=== PATIENT | female | born 1940 | race Caucasian/White ===

== ENCOUNTER 2022-01-12 09:07 | Inpatient (IN) | payer MEDICARE ==
[~2022-01-12] VITALS: Ht 167.6 cm; Wt 126.1 kg
[2022-01-12 09:42] LABS: BASOPHILS % 0.2 % (0.0-1.0); EOSINOPHILS % 0.4 % (0.0-6.0); HEMATOCRIT 37.1 % (34.2-44.1); LYMPHOCYTES # (AUTO) 0.7 (1.0-3.2); LYMPHOCYTES % 12.2 % (18.0-39.1); MEAN CORPUSCULAR HEMOGLOBIN 25.3 pg (28-32); MEAN CORPUSCULAR HGB CONC 29.6 g/dL (31-35); MEAN CORPUSCULAR VOLUME 85.3 fL (81-99); MONOCYTES # (AUTO) 0.6 (0.2-0.8); MONOCYTES % 11.2 % (4.4-11.3); NEUTROPHILS # (AUTO) 4.2 (2.1-6.9); NEUTROPHILS % 75.5 % (38.7-80.0); PLATELET COUNT 172 x10e3/uL (140-360); RED BLOOD COUNT 4.35 x10e6/uL (3.6-5.1)
[2022-01-12 10:00] LABS: COLOR,URINE YELLOW (YELLOW)
[2022-01-12 10:01] LABS: CLARITY,URINE CLEAR (CLEAR); KETONES,URINE NEGATIVE (NEGATIVE); LEUKOCYTE ESTERASE ,URINE NEGATIVE (NEGATIVE); NITRITE,URINE NEGATIVE (NEGATIVE); PROTEIN,URINE DIPSTICK NEGATIVE (NEGATIVE); URINE UROBILINOGEN 0.2 mg/dL (0.2 - 1)
[2022-01-12] MEDS ORDERED: FISH OIL 1,0001 EAC2 PO (10:04)
[2022-01-12] MEDS ORDERED: JANTOVEN2.5 MG PO (10:04)
[2022-01-12] MEDS ORDERED: FUROSEMIDE40 MG PO (10:04)
[2022-01-12] MEDS ORDERED: RYTHMOL SR225 MG PO (10:04)
[2022-01-12] MEDS ORDERED: VITAMIN B-650 MG PO (10:04)
[2022-01-12] MEDS ORDERED: HYDRALAZINE HC100 MG PO (10:04)
[2022-01-12] MEDS ORDERED: VITAMIN B-121000 MCG PO (10:04)
[2022-01-12] MEDS ORDERED: ATENOLOL50 MG PO (10:04)
[2022-01-12] MEDS ORDERED: PANTOPRAZOLE SO40 MG PO ×2 (10:04)
[2022-01-12] MEDS ORDERED: LOSARTAN POTAS100 MG PO (10:04)
[2022-01-12] MEDS ORDERED: VITAMIN D350 MCG PO (10:04)
[2022-01-12] MEDS ORDERED: JANUVIA100 MG PO (10:04)
[2022-01-12] MEDS ORDERED: ASPIRIN81 MG PO (10:04)
[2022-01-12 10:05] LABS: ALBUMIN 2.8 g/dL (3.5-5.0); ALBUMIN/GLOBULIN RATIO 0.8 (0.8-2.0); ANION GAP 13.9 mmol/L (8-16); CALCIUM 9.8 mg/dL (8.4-10.2); CREATININE, SERUM 1.57 mg/dL (0.57-1.11); PARTIAL THROMBOPLASTIN TIME 101.2 seconds (23.8-35.5); POTASSIUM 3.9 mmol/L (3.5-5.1)
[2022-01-12 10:06] LABS: INR 6.65; PROTHROMBIN TIME 61.1 seconds (11.9-14.5)
[2022-01-12 10:13] LABS: CREATINE KINASE MB 6.1 ng/mL (0-5.0)
[2022-01-12 10:39] LABS: BACTERIA,URINE RARE /HPF; EPITHELIAL CELLS,URINE FEW /LPF; RBC,URINE 0-5 /HPF (0-5); TRANSITIONAL EPI CELLS,URINE RARE
[2022-01-12] MEDS ORDERED: SODIUM CHLORIDE 0.9% 1000ML 1,000 ML IV SCH (11:15)
[2022-01-12] MEDS ORDERED: ACETAMINOPHEN 325 MG TAB PO PRN (11:15)
[2022-01-12] MEDS ORDERED: ONDANSETRON HCL INJ 2MG/ML 2ML 2 MG/ML VIAL IV PRN (11:15)
[2022-01-12 11:57] VITALS: BP 132/66
[2022-01-12 12:00] VITALS: BP 132/66
[2022-01-12 12:37] VITALS: BP 132/66
[2022-01-12] MEDS: HYDROCODONE/APAP 5MG-325MG TAB PO PRN ×2 (14:55→21:00)
[2022-01-12] MEDS: CEFTRIAXONE 2 GM in SODIUM CHLORIDE 0.9% 100 ML IV SCH (15:56)
[2022-01-12 16:06] VITALS: BP 98/50
[2022-01-12] MEDS: NYSTATIN 15 GM POWDER UD BTL TOP SCH (17:08)
[2022-01-12] MEDS: FLUCONAZOLE 200 MG/100 ML 100 ML IV SCH (17:08)
[2022-01-12 18:53] LABS: CREATINE KINASE MB 6.3 ng/mL (0-5.0)
[2022-01-12 19:40] VITALS: BP 97/45
[2022-01-12 20:32] VITALS: BP 97/45
[2022-01-12] MEDS: PANTOPRAZOLE SOD 40 MG TABEC PO SCH (21:00)
[2022-01-13] VITALS (8 sets, daily range): BP systolic 86–118; BP diastolic 45–77
[2022-01-13] MEDS: BALSAM PERU/CASTOR OIL 60 GM OINT...G. TP SCH (03:25)
[2022-01-13] MEDS: NYSTATIN 15 GM POWDER UD BTL TOP SCH ×2 (03:25→16:41)
[2022-01-13] MEDS: HYDROCODONE/APAP 5MG-325MG TAB PO PRN ×4 (04:24→23:47)
[2022-01-13 05:04] LABS: BASOPHILS % 0.2 % (0.0-1.0); EOSINOPHILS % 0.4 % (0.0-6.0); HEMOGLOBIN 10.1 g/dL (12.0-16.0); LYMPHOCYTES # (AUTO) 0.5 (1.0-3.2); LYMPHOCYTES % 9.1 % (18.0-39.1); MEAN CORPUSCULAR HEMOGLOBIN 25.5 pg (28-32); MEAN CORPUSCULAR HGB CONC 29.7 g/dL (31-35); MEAN CORPUSCULAR VOLUME 85.9 fL (81-99); MONOCYTES # (AUTO) 0.7 (0.2-0.8); MONOCYTES % 12.5 % (4.4-11.3); NEUTROPHILS # (AUTO) 4.3 (2.1-6.9); NEUTROPHILS % 77.1 % (38.7-80.0); PLATELET COUNT 138 x10e3/uL (140-360); RED BLOOD COUNT 3.96 x10e6/uL (3.6-5.1); RED CELL DISTRIBUTION WIDTH 18.8 % (11.7-14.4)
[2022-01-13 05:21] LABS: INR 7.57; PROTHROMBIN TIME 67.6 seconds (11.9-14.5)
[2022-01-13 05:44] LABS: ALBUMIN 2.5 g/dL (3.5-5.0); ALBUMIN/GLOBULIN RATIO 0.8 (0.8-2.0); CALCIUM 9.3 mg/dL (8.4-10.2); CHOL/HDL RATIO 2.4 (3.0-3.6); CREATININE, SERUM 1.51 mg/dL (0.57-1.11)
[2022-01-13 06:11] LABS: CREATINE KINASE MB 5.7 ng/mL (0-5.0)
[2022-01-13 06:23] LABS: PHOSPHORUS 2.9 MG/DL (2.3-4.7)
[2022-01-13] MEDS: LOSARTAN POTASSIUM 25 MG TAB PO SCH (07:58)
[2022-01-13] MEDS: FUROSEMIDE INJ 10 MG/ML 2 ML VIAL IV SCH (08:08)
[2022-01-13] MEDS: ASPIRIN 81 MG CHEW TAB PO SCH (08:08)
[2022-01-13] MEDS ORDERED: FUROSEMIDE 40 MG TAB PO SCH (09:00)
[2022-01-13] MEDS ORDERED: NYSTATIN 15 GM POWDER UD BTL TOP SCH (09:00)
[2022-01-13] MEDS ORDERED: LOSARTAN POTASSIUM 100 MG TAB PO SCH (09:00)
[2022-01-13] MEDS ORDERED: ONDANSETRON HCL 4 MG ORAL DISINTEGRATING TAB PO PRN (09:15)
[2022-01-13] MEDS ORDERED: PHYTONADIONE 5 MG TAB PO ONE (10:00)
[2022-01-13] MEDS ORDERED: PHYTONADIONE 10 MG/ML AMP SC ONE (10:15)
[2022-01-13] MEDS: FLUCONAZOLE 200 MG/100 ML 100 ML IV SCH (15:26)
[2022-01-13] MEDS: CEFTRIAXONE 2 GM in SODIUM CHLORIDE 0.9% 100 ML IV SCH (16:40)
[2022-01-13] MEDS: PANTOPRAZOLE SOD 40 MG TABEC PO SCH (21:46)
[2022-01-14] VITALS (8 sets, daily range): BP systolic 102–116; BP diastolic 46–55
[2022-01-14] MEDS: BALSAM PERU/CASTOR OIL 60 GM OINT...G. TP SCH (03:45)
[2022-01-14] MEDS: NYSTATIN 15 GM POWDER UD BTL TOP SCH ×2 (03:45→17:00)
[2022-01-14 05:50] LABS: BASOPHILS % 0.6 % (0.0-1.0); EOSINOPHILS % 0.6 % (0.0-6.0); HEMATOCRIT 37.2 % (34.2-44.1); HEMOGLOBIN 10.6 g/dL (12.0-16.0); LYMPHOCYTES # (AUTO) 1.5 (1.0-3.2); LYMPHOCYTES % 24.1 % (18.0-39.1); MEAN CORPUSCULAR HEMOGLOBIN 25.3 pg (28-32); MEAN CORPUSCULAR HGB CONC 28.5 g/dL (31-35); MEAN CORPUSCULAR VOLUME 88.8 fL (81-99); MONOCYTES # (AUTO) 0.8 (0.2-0.8); MONOCYTES % 13.1 % (4.4-11.3); NEUTROPHILS # (AUTO) 3.8 (2.1-6.9); NEUTROPHILS % 61.1 % (38.7-80.0); PLATELET COUNT 147 x10e3/uL (140-360); RED BLOOD COUNT 4.19 x10e6/uL (3.6-5.1)
[2022-01-14 05:55] LABS: INR 4.14
[2022-01-14] MEDS: HYDROCODONE/APAP 5MG-325MG TAB PO PRN (06:04)
[2022-01-14 06:06] LABS: ANION GAP 11.5 mmol/L (8-16); CREATININE, SERUM 1.74 mg/dL (0.57-1.11); POTASSIUM 4.5 mmol/L (3.5-5.1)
[2022-01-14 06:07] LABS: PROTHROMBIN TIME 42.2 seconds (11.9-14.5)
[2022-01-14] MEDS: ASPIRIN 81 MG CHEW TAB PO SCH (08:15)
[2022-01-14] MEDS: FUROSEMIDE INJ 10 MG/ML 2 ML VIAL IV SCH (08:15)
[2022-01-14] MEDS: LOSARTAN POTASSIUM 25 MG TAB PO SCH (08:20)
[2022-01-14] MEDS: FLUCONAZOLE 200 MG/100 ML 100 ML IV SCH (15:27)
[2022-01-14] MEDS: CEFTRIAXONE 2 GM in SODIUM CHLORIDE 0.9% 100 ML IV SCH (17:00)
[2022-01-14] MEDS: PANTOPRAZOLE SOD 40 MG TABEC PO SCH (22:00)
[2022-01-15 04:00] VITALS: BP 127/53
[2022-01-15] MEDS: HYDROCODONE/APAP 5MG-325MG TAB PO PRN (05:52)
[2022-01-15 06:02] LABS: BASOPHILS % 0.3 % (0.0-1.0); EOSINOPHILS % 0.6 % (0.0-6.0); HEMATOCRIT 35.4 % (34.2-44.1); HEMOGLOBIN 10.2 g/dL (12.0-16.0); LYMPHOCYTES # (AUTO) 1.1 (1.0-3.2); LYMPHOCYTES % 17.5 % (18.0-39.1); MEAN CORPUSCULAR HGB CONC 28.8 g/dL (31-35); MEAN CORPUSCULAR VOLUME 90.1 fL (81-99); MONOCYTES # (AUTO) 0.9 (0.2-0.8); MONOCYTES % 14.7 % (4.4-11.3); NEUTROPHILS # (AUTO) 4.2 (2.1-6.9); NEUTROPHILS % 66.3 % (38.7-80.0); PLATELET COUNT 150 x10e3/uL (140-360); RED BLOOD COUNT 3.93 x10e6/uL (3.6-5.1); RED CELL DISTRIBUTION WIDTH 18.8 % (11.7-14.4)
[2022-01-15 06:15] LABS: INR 1.23; PROTHROMBIN TIME 16.6 seconds (11.9-14.5)
[2022-01-15 06:17] LABS: ANION GAP 14.2 mmol/L (8-16); CREATININE, SERUM 1.54 mg/dL (0.57-1.11); POTASSIUM 4.2 mmol/L (3.5-5.1)
[2022-01-15 08:00] VITALS: BP 105/71
[2022-01-15 08:16] VITALS: BP 105/71
[2022-01-15] MEDS: BALSAM PERU/CASTOR OIL 60 GM OINT...G. TP SCH (08:49)
[2022-01-15] MEDS: NYSTATIN 15 GM POWDER UD BTL TOP SCH (08:49)
[2022-01-15] MEDS: FUROSEMIDE INJ 10 MG/ML 2 ML VIAL IV SCH (08:49)
[2022-01-15] MEDS: ASPIRIN 81 MG CHEW TAB PO SCH (08:49)
[2022-01-15] MEDS ORDERED: WARFARIN SODIUM1 MG PO (10:18)
[2022-01-15] MEDS ORDERED: LASIX20 MG PO (10:19)
[2022-01-15] MEDS ORDERED: DIFLUCAN100 MG PO (10:19)
[2022-01-15] MEDS ORDERED: KEFLEX125 MG/5 M PO (10:21)
[2022-01-15 12:02] VITALS: BP 132/59
[2022-01-15] MEDS ORDERED: FLUCONAZOLE 100 MG TAB PO SCH (15:00)
[2022-01-16] MEDS ORDERED: FUROSEMIDE 20 MG TAB PO SCH (09:00)
== END 2022-01-15 14:50 | disposition home or self-care (01) | DRG 291 ==
LOC: ER 09:11 → ERHOLD 11:12 → MED/SURG3 11:45
PROVIDERS: ADMIT Internal Medicine; ATTEND Internal Medicine
DX: I13.0 Hypertensive heart and chronic kidney disease with heart failure and stage 1 through stage 4 chronic kidney disease, or unspecified chronic kidney disease (principal); N17.0 Acute kidney failure with tubular necrosis; I50.43 Acute on chronic combined systolic (congestive) and diastolic (congestive) heart failure; D68.32 Hemorrhagic disorder due to extrinsic circulating anticoagulants; L03.116 Cellulitis of left lower limb; L03.115 Cellulitis of right lower limb; Z68.41 Body mass index [BMI] 40.0-44.9, adult; E87.3 Alkalosis; R00.1 Bradycardia, unspecified; I95.9 Hypotension, unspecified; N18.31 Chronic kidney disease, stage 3a; E11.22 Type 2 diabetes mellitus with diabetic chronic kidney disease; Z79.4 Long term (current) use of insulin; T45.515A Adverse effect of anticoagulants, initial encounter; I87.2 Venous insufficiency (chronic) (peripheral); I89.0 Lymphedema, not elsewhere classified; B36.9 Superficial mycosis, unspecified; L89.152 Pressure ulcer of sacral region, stage 2; E66.01 Morbid (severe) obesity due to excess calories; T50.1X5A Adverse effect of loop [high-ceiling] diuretics, initial encounter; I48.91 Unspecified atrial fibrillation; Z79.01 Long term (current) use of anticoagulants; T46.1X5A Adverse effect of calcium-channel blockers, initial encounter
CPT/HCPCS: 36415; 51700; 70450; 71045; 80048; 80053; 80061; 81001; 81015; 82550; 82553; 82948; 83036; 83605; 83735; 83880; 84100; 84443; 84484; 85025; 85610; 85730; 86850; 86900; 87040; 87086; 93005; 93306; 93970; 94799; 97139; 99251; 99285; J0696; J1450; J1940; J3430; J7030; J7050; U0002